=== PATIENT | male | born 1970 | race Caucasian/White ===

== ENCOUNTER 2017-02-02 08:05 | Emergency (ER) | payer SELFPAY ==
[~2017-02-02] VITALS: Ht 172.7 cm; Wt 105.2 kg
[~2017-02-02 08:05] MED LIST: ACET500C PO; LISI-519 PO
[2017-02-02 08:10] VITALS: BP 228/137; PULSE 82; RESP 16; TEMP 98.6; O2SAT 100
[2017-02-02] MEDS ORDERED: HYDR2.5O TOPICAL (08:54)
--- NOTE | 2017-02-02 08:54 | PD ---
HPI Chief Complaint: Complaint Time Seen by Provider: 08:18 Travel History International Travel<30 days: No Contact w/Intl Traveler<30days: No Traveled to known affect area: No History of Present Illness HPI So 46-year-old man who presents to the emergency department complaining of itchy rash on his inner thigh. Been going on for several weeks. Described some skin discoloration and rash. He works at [employer] He does not drive so he does walk outside in the heat a lot. He otherwise has been feeling generally well. He denies any penile discharge dysuria or urinary frequency. He states he was told he had diabetes 10 or 15 years ago but has never really followed up on it. He notes he is hypertension and also does not see a primary physician. He has been sexually active with the mother's children in the past but not recently. No other sexual partners. No other complaints. History Past Medical History Narrative Medical Anxiety Diabetes Hypertension Social History Alcohol Use: No Tobacco Use: No Allergies-Medications (Allergen,Severity, Reaction): Coded Allergies: No Known Allergies (Verified , 02/02/17) Reported Meds & Prescriptions Reported Meds & Active Scripts Active Lisinopril 5 Mg Tab 5 Mg PO DAILY Acetaminophen 500 Mg Cap 500 Mg PO Q4-6H PRN Review of Systems Except as stated in HPI: all other systems reviewed are Neg Physical Exam Narrative GENERAL: 46-year-old man, well appearing, no acute distress. SKIN: Focused skin assessment warm/dry. CARDIOVASCULAR: Regular rate and rhythm. No murmur appreciated. RESPIRATORY: No accessory muscle use. Clear to auscultation. Breath sounds equal bilaterally. GASTROINTESTINAL: Abdomen soft, non-tender, nondistended. Hepatic and splenic margins not palpable. : Normal external male genitalia. Uncircumcised. No penile discharge. No testicular swelling or tenderness. The penis and scrotum are normal appearing. There is some hyperpigmentation with scaling rash on the upper inner thigh. There is no redness or evidence of shaq. Data Data Last Documented VS Vital Signs Date Time Temp Pulse Resp B/P Pulse Ox O2 Delivery O2 Flow Rate FiO2 02/02/17 08:10 98.6 82 16 228/137 100 MDM Medical Decision Making Medical Screen Exam Complete: Yes Emergency Medical Condition: Yes Differential Diagnosis Psoriasis, skin rash, abrasion, other Narrative Course Medical decision making This 46-year-old male with an itchy skin rash on his upper inner thigh. He has uncontrolled diabetes mellitus hypertension. He needs outpatient follow-up. We 'll give him information about his elevated clinic. We'll give him a steroid cream for his pruritic rash. Diagnosis Primary Impression: Pruritic rash Patient Instructions: General Instructions Additional Instructions: [facility] to [facility] care. Use hydrocortisone cream as directed. Return to the emergency department for any new or worsening symptoms. Med/Other Pt SpecificInfo: Prescription(s) given Scripts Hydrocortisone Topical 2.5% Oint1 Applic TOPICAL BID #30 GM Ref 0 Prov:Ron Rosario MD 02/02/17 Disposition: 01 DISCHARGE HOME Condition: Stable Ron Rosario MD Feb 02, 2017 08:54
[2017-02-02 09:06] VITALS: BP 202/120
== END 2017-02-02 09:12 | disposition home or self-care (01) ==
LOC: PHED 08:05
DX: L29.9 Pruritus, unspecified (principal); E11.65 Type 2 diabetes mellitus with hyperglycemia; I10 Essential (primary) hypertension
CPT/HCPCS: 99283

== ENCOUNTER 2017-03-09 09:01 | Emergency (ER) | payer SELFPAY ==
[~2017-03-09] VITALS: Ht 172.7 cm; Wt 105.9 kg
[~2017-03-09 09:01] MED LIST changes: -ACET500C PO; +HYDR2.5O TOPICAL
[2017-03-09 09:28] VITALS: BP_SYST 189; BP_SYST 195; BP_DIAS 109; BP_DIAS 114; PULSE 89; RESP 18; TEMP 98.3; O2SAT 99
--- NOTE | 2017-03-09 10:27 | PD ---
HPI Chief Complaint: elevated blood pressure Time Seen by Provider: 10:15 Travel History International Travel<30 days: No Contact w/Intl Traveler<30days: No Traveled to known affect area: No History of Present Illness HPI 46 y/o male presents with multiple year history of blood pressure of medications. He does not know what he has been on in the past. He states a couple days ago he was at work and felt dehydrated and like his pressure was worse so his boss made him go to a doctor to get checked out. He denies any active symptoms now. quality is elevated. severity is unknown as outpatient as patient has not checked in awhile but notes always high. PFSH Past Medical History Anxiety: Yes Diabetes: Yes (HE SAYS A DOCTOR TOLD HIM ONE TIME THAT HIS BLOOD SUGAR WAS HIGH - NO MEDS) Diminished Hearing: No Hypertension: Yes (BY HX- NO MEDS, NO CURRENT SYMPTOM) Immunizations Current: Yes Influenza Vaccination: No ?: Not Past Surgical History Surgical History: No Previous Surgery Social History Alcohol Use: No Tobacco Use: No Substance Use: No Allergies-Medications (Allergen,Severity, Reaction): Coded Allergies: No Known Allergies (Verified , 03/09/17) Reported Meds & Prescriptions Reported Meds & Active Scripts Active Lisinopril 5 Mg Tab 5 Mg PO DAILY Review of Systems Except as stated in HPI: all other systems reviewed are Neg Physical Exam Narrative GENERAL: Well-nourished, well-developed patient. SKIN: Warm and dry. HEAD: Normocephalic and atraumatic. EYES: No injection or drainage. ENT: No nasal drainage noted. NECK: Supple, trachea midline. CARDIOVASCULAR: Regular rate and rhythm RESPIRATORY: Breath sounds equal bilaterally. No accessory muscle use. GASTROINTESTINAL: Abdomen soft, non-tender, nondistended. EXTREMITIES: No edema. NEUROLOGICAL: Awake and alert. Motor and sensory grossly within normal limits. Normal speech. Data Data Last Documented VS Vital Signs Date Time Temp Pulse Resp B/P (MAP) Pulse Ox O2 Delivery O2 Flow Rate FiO2 03/09/17 11:41 03/09/17 11:35 76 20 98 03/09/17 09:28 98.3 Orders Orders Complete Blood Count With Diff (03/09/17 10:23) Basic Metabolic Panel (Bmp) (03/09/17 10:23) Iv Access Insert/Monitor (03/09/17 10:23) Ecg Monitoring (03/09/17 10:23) Oximetry (03/09/17 10:23) Enalaprilat Inj (Vasotec Inj) (03/09/17 10:30) Labs Laboratory Tests Test 03/09/17 10:30 White Blood Count 8.7 TH/MM3 Red Blood Count 5.72 MIL/MM3 Hemoglobin 14.8 GM/DL Hematocrit 45.5 % Mean Corpuscular Volume 79.6 FL Mean Corpuscular Hemoglobin 25.9 PG Mean Corpuscular Hemoglobin Concent 32.5 % Red Cell Distribution Width 13.2 % Platelet Count 295 TH/MM3 Mean Platelet Volume 7.9 FL Neutrophils (%) (Auto) 67.6 % Lymphocytes (%) (Auto) 20.5 % Monocytes (%) (Auto) 7.7 % Eosinophils (%) (Auto) 2.0 % Basophils (%) (Auto) 2.2 % Neutrophils # (Auto) 5.8 TH/MM3 Lymphocytes # (Auto) 1.8 TH/MM3 Monocytes # (Auto) 0.7 TH/MM3 Eosinophils # (Auto) 0.2 TH/MM3 Basophils # (Auto) 0.2 TH/MM3 CBC Comment DIFF FINAL Differential Comment Blood Urea Nitrogen 11 MG/DL Creatinine 0.94 MG/DL Random Glucose 266 MG/DL Calcium Level 9.4 MG/DL Sodium Level 136 MEQ/L Potassium Level 3.8 MEQ/L Chloride Level 98 MEQ/L Carbon Dioxide Level 27.1 MEQ/L Anion Gap 11 MEQ/L Estimat Glomerular Filtration Rate 87 ML/MIN MDM Medical Decision Making Medical Screen Exam Complete: Yes Emergency Medical Condition: Yes Medical Record Reviewed: Yes (h confirmed) Interpretation(s) CBC & BMP Diagram 03/09/17 10:30 Calcium Level 9.4 Vital Signs Date Time Temp Pulse Resp B/P (MAP) Pulse Ox O2 Delivery O2 Flow Rate FiO2 03/09/17 11:41 03/09/17 11:35 76 20 143/72 (95) 98 03/09/17 10:52 82 20 162/103 (122) 97 03/09/17 10:50 97 03/09/17 09:28 98.3 89 18 195/109 (137) 99 189/114 (139) Differential Diagnosis hypertensive urgency, anemia, electrolyte abnormality... Narrative Course will check basic labs and dose with vasotec as in past was on lisinopril Patient denies any new complaints and states that they are feeling better. Patient happy with care, all questions answered. Patient knows that follow up is incumbent on them and to return to the emergency room immediately if new or worsening symptoms develop. Patient given strict return precautions, vitals reviewed and are normal, agrees to further workup as an outpatient. advised diabetic and to follow diabetic diet in addition to blood pressure control Diagnosis Primary Impression: Uncontrolled hypertension Additional Impression: Noncompliance with diabetes treatment Referrals: [facility] Patient Assistance Program Patient Instructions: General Instructions, Hypertension (DC) Additional Instructions: limit sugar in diet, set up a primary, return as needed, keep blood pressure log Med/Other Pt SpecificInfo: Prescription(s) given Scripts Lisinopril (Lisinopril) 5 Mg Tab 5 MG PO DAILY for Blood Pressure Management, #14 TAB 0 Refills Prov: Shira Taylor MD 03/09/17 Disposition: 01 DISCHARGE HOME Condition: Stable Shira Taylor MD Mar 09, 2017 10:27
[2017-03-09] MEDS ORDERED: ENALAPRILAT 1.25 MG/ML VIAL IV PUSH ONE (10:30)
[2017-03-09 10:50] VITALS: O2SAT 97
[2017-03-09 10:52] VITALS: BP 162/103; PULSE 82; RESP 20; O2SAT 97
[2017-03-09 10:58] LABS: AUTOMATED NEUTROPHIL # 5.8 TH/MM3 (1.8-7.7); BASOPHIL # 0.2 TH/MM3 (0-0.2); BASOPHIL % 2.2 % (0.0-2.0); EOSINOPHIL # 0.2 TH/MM3 (0-0.4); HEMATOCRIT 45.5 % (39.0-51.0); HEMO FLAGS DIFF FINAL; LYMPH % 20.5 % (9.0-44.0); LYMPHOCYTE # 1.8 TH/MM3 (1.0-4.8); MEAN CELL VOLUME 79.6 FL (80.0-100.0); MEAN CORPUSCULAR HEMOGLOBIN 25.9 PG (27.0-34.0); MEAN CORPUSCULAR HGB CONC 32.5 % (32.0-36.0); MONO % 7.7 % (0.0-8.0); NEUT % 67.6 % (16.0-70.0); PLATELET COUNT 295 TH/MM3 (150-450); RED BLOOD COUNT 5.72 MIL/MM3 (4.50-5.90); RED CELL DISTRIBUTION WIDTH 13.2 % (11.6-17.2); WHITE BLOOD COUNT 8.7 TH/MM3 (4.0-11.0)
[2017-03-09 11:08] LABS: POTASSIUM 3.8 MEQ/L (3.5-5.1)
[2017-03-09 11:11] LABS: BICARBONATE 27.1 MEQ/L (21.0-32.0)
[2017-03-09] MEDS ORDERED: LISI-519 PO (11:29)
[2017-03-09 11:35] VITALS: BP 143/72; PULSE 76; RESP 20; O2SAT 98
== END 2017-03-09 11:45 | disposition home or self-care (01) ==
LOC: PHED 09:01
DX: I10 Essential (primary) hypertension (principal); E11.9 Type 2 diabetes mellitus without complications; Z91.19 Patient's noncompliance with other medical treatment and regimen
CPT/HCPCS: 80048; 85025; 96374

== ENCOUNTER 2017-07-22 07:51 | Emergency (ER) | payer SELFPAY ==
[~2017-07-22 07:51] MED LIST changes: -HYDR2.5O TOPICAL
[2017-07-22 07:57] VITALS: BP 233/130; PULSE 95; RESP 16; TEMP 96.9; O2SAT 99
--- NOTE | 2017-07-22 08:13 | PD ---
HPI Chief Complaint: Skin Problem Time Seen by Provider: 08:03 Travel History International Travel<30 days: No Contact w/Intl Traveler<30days: No Traveled to known affect area: No History of Present Illness HPI This 47-year-old male complaining of itchy rash in the groin area. He says it has been there for several months. He has been using cortisone cream which seems to help but then when he stops the cream it is worse. The rashes quite itchy. He has been here on several occasions with elevated blood pressure has been recommended to take medication. He believes part of it is not related to anxiety of just being here. He says he has severe PTSD in its very anxious when these out alone. He has not taken blood pressure medicine that has been prescribed for him. He does not have chest pain or shortness of breath PFSH Past Medical History Anxiety: Yes Depression: Yes Diabetes: Yes (HE SAYS A DOCTOR TOLD HIM ONE TIME THAT HIS BLOOD SUGAR WAS HIGH - NO MEDS) Diminished Hearing: No Hypertension: Yes Immunizations Current: Yes Influenza Vaccination: No Past Surgical History Surgical History: No Previous Surgery Social History Alcohol Use: No Tobacco Use: No Substance Use: No Allergies-Medications (Allergen,Severity, Reaction): Coded Allergies: No Known Allergies (Verified Adverse Reaction, Unknown, 07/22/17) Reported Meds & Prescriptions Reported Meds & Active Scripts Active No Active Prescriptions or Reported Medications Review of Systems General / Constitutional: No: Fever, Chills Eyes: No: Diploplia, Blurred Vision HENT: No: Vertigo, Lightheadedness Cardiovascular: No: Chest Pain or Discomfort, Palpitations Respiratory: No: Cough, Shortness of Breath Gastrointestinal: No: Vomiting, Diarrhea Genitourinary: No: Urgency, Frequency Musculoskeletal: No: Myalgias Skin: Positive Rash, Positive Itching Neurologic: No: Weakness, Dizziness Psychiatric: Positive: Anxiety Hematologic/Lymphatic: No: Easy Bruising Physical Exam Narrative GENERAL: Well-developed male blood pressures initially 230/130 SKIN: Focused skin assessment warm/dry. There is an erythematous scaly rash in the groin area consistent with tinea cruris HEAD: Atraumatic. Normocephalic. EYES: Pupils equal and round. No scleral icterus. No injection or drainage. ENT: No nasal bleeding or discharge. Mucous membranes pink and moist. NECK: Trachea midline. No JVD. CARDIOVASCULAR: Regular rate and rhythm. No murmur appreciated. RESPIRATORY: No accessory muscle use. Clear to auscultation. Breath sounds equal bilaterally. GASTROINTESTINAL: Abdomen soft, non-tender, nondistended. Hepatic and splenic margins not palpable. MUSCULOSKELETAL: No obvious deformities. No clubbing. No cyanosis. No edema. NEUROLOGICAL: Awake and alert. No obvious cranial nerve deficits. Motor grossly within normal limits. Normal speech. PSYCHIATRIC: Appropriate mood and affect; insight and judgment normal. Data Data Last Documented VS Vital Signs Date Time Temp Pulse Resp B/P (MAP) Pulse Ox O2 Delivery O2 Flow Rate FiO2 07/22/17 07:57 96.9 95 16 233/130 (164) 99 MDM Medical Decision Making Medical Screen Exam Complete: Yes Emergency Medical Condition: Yes Medical Record Reviewed: Yes Differential Diagnosis Differential includes cellulitis, tinea cruris essential hypertension Narrative Course Patient has had recurrent bouts of hypertension here has been given medication which he has not taken. I have stressed to him the importance of taking medication for his blood pressure. He will be referred to the [facility]. He will be given prescription for tinea cruris Diagnosis Primary Impression: Tinea cruris Additional Impression: Uncontrolled hypertension Referrals: [facility] Scripts Terbinafine Topical (Terbinafine Topical) 1 % Cream 1 APPLIC TOPICAL BID for Manage Fungal Infection for 10 Days, #1 TUBE 0 Refills Prov: Ruddy Vo MD 07/22/17 Lisinopril (Lisinopril) 10 Mg Tab 10 MG PO DAILY, #30 TAB 0 Refills Prov: Ruddy Vo MD 07/22/17 Disposition: 01 DISCHARGE HOME Condition: Stable Ruddy Vo MD Jul 22, 2017 08:13
[2017-07-22] MEDS ORDERED: LISI10TA3 PO (08:17)
[2017-07-22] MEDS ORDERED: TERB1CRE11 TOPICAL (08:17)
[2017-07-22 08:24] VITALS: BP 201/98
== END 2017-07-22 08:27 | disposition home or self-care (01) ==
LOC: PHEFT 07:51
DX: B35.6 Tinea cruris (principal); I10 Essential (primary) hypertension
CPT/HCPCS: 99284